=== PATIENT | female | born 1990 | race Caucasian/White ===

== ENCOUNTER 2019-04-17 10:14 | Outpatient (CLI) | payer BC, SELFPAY ==
--- NOTE | ~2019-04-17 | XR_ITS ---
EXAMINATION: XR chest 2V EXAM DATE: 04/17/2019 12:58 INDICATION: Chest pain on breathing. TECHNIQUE: Frontal and lateral projections of the chest obtained and reviewed. There is no prior joni dy for comparison. FINDINGS: The lungs are clear. There are no pleural effusions. The cardiomediastinal silhouette is within normal limits. There is no pneumothorax suspected. The bones and soft tissues are unremarkab le. IMPRESSION: Normal chest x-ray exam. Reviewed, dictated and finalized at location A. RING ASSISTANT IMPRESSION: Normal chest x-ray exam.
--- NOTE | 2019-04-17 10:38 | ECG_ITS ---
Measurements Intervals [place] Rate: 66 P: 15 AR: 134 QRS: 28 QRSD: 81 T: 6 QT: 410 QTc: 431 Interpretive Statements SINUS RHYTHM MINIMAL Q WAVES- LATERAL LEADS NONSPECIFIC T-WAVE ABNORMALITY- ANT/INF LEADS BORDERLINE ECG Electronically Signed On 04-17-2019 10:57:55 EXERCISE EQUIPMENT REPAIR TECHNICIAN by Frank Ashley D.O.
== END 2019-04-17 10:15 | disposition home or self-care (01) ==
PROVIDERS: PCP Internal Medicine; Visit Provider Nurse Practitioner
DX: R07.1 Chest pain on breathing (principal)
CPT/HCPCS: 71046; 93005

== ENCOUNTER 2019-04-28 12:45 | Outpatient (CLI) | payer BC, SELFPAY ==
--- NOTE | 2019-04-28 12:50 | ECG_ITS ---
Measurements Intervals [place] Rate: 68 P: 7 LA: 127 QRS: 17 QRSD: 85 T: 13 QT: 420 QTc: 448 Interpretive Statements SINUS RHYTHM MINIMAL Q WAVES- LATERAL LEADS BORDERLINE ECG Electronically Signed On 04-28-2019 13:06:40 LINING MARKER by Frank Ashley D.O.
== END 2019-04-28 12:46 | disposition home or self-care (01) ==
PROVIDERS: PCP Internal Medicine; Visit Provider Nurse Practitioner
DX: R07.1 Chest pain on breathing (principal)
CPT/HCPCS: 93005

== ENCOUNTER 2019-05-20 07:51 | Outpatient (CLI) | payer BC, SELFPAY ==
--- NOTE | ~2019-05-20 | NM_ITS ---
HEPATOBILIARY SCAN Procedure: Hepatobiliary scan performed following IV administration 4.8 mCi Tc 99m Choletec. At 60 m inutes 1.6 mcg CCK administered IV for evaluation of gallbladder ejection fraction. Indication:Bladder disease Comparison: HIDA scan dated 07/12/2015 Findings: There is normal radiotracer uptake in the liver parenchyma with prompt excretion into the b iliary tract. Gallbladder visualized at 30 minutes. Small bowel visualized at 25 minutes. Normal g allbladder ejection fraction measures 52% (normal 10-90%, but most patients with gallbladder dysfunct ion have GBEF of less than 35%) Impression: 1: Normal hepatobiliary scan. Reviewed, dictated and finalized at location A. Impression: 1: Normal hepatobiliary scan.
== END 2019-05-20 07:52 | disposition home or self-care (01) ==
LOC: ANHIMG 07:57
PROVIDERS: PCP Internal Medicine; Visit Provider Internal Medicine
DX: K82.9 Disease of gallbladder, unspecified (principal)
CPT/HCPCS: 78227; A9537; J2805

== ENCOUNTER → 2020-11-18 15:10 | Outpatient (CLI) | payer OTHER, SELFPAY ==
--- NOTE | ~2020-11-18 | US_ITS ---
EXAMINATION: US OB transvaginal DATE: 11/18/2020 15:54 INDICATION: Gestational dating TECHNIQUE: Real-time transabdominal and transvaginal obstetric ultrasound. FINDINGS: No prior studies for comparison. The uterus measures 6.6 x 4.6 x 5.8 cm. There is an intrauterine gestational sac, with pole [place] ntified. The crown rump length measures 0.43 cm, which correlates with a estimated gestational age o f 5 weeks 6 days. heart tones are identified measuring 120 BPM. There is a subchorionic hemor rhage measuring 1.3 x 1.1 x 0.6 cm. Right ovary is not visualized. Left ovary is normal. Small amount of free fluid in the pelvis. IMPRESSION: 1. SL IUP with an EGA of 5 weeks, 6 days (EDC by current ultrasound of 07/13/2021). 2: Small subchorionic hemorrhage. Reviewed, dictated and finalized at location A. IMPRESSION: 1. SL IUP with an EGA of 5 weeks, 6 days (EDC by current ultrasound of 2). 2: Small subchorionic hemorrhage.
== END ==
PROVIDERS: Visit Provider Obstetrics & Gynecology Gynecology
DX: O26.841 Uterine size-date discrepancy, first trimester (principal); Z3A.01 Less than 8 weeks gestation of pregnancy
CPT/HCPCS: 76817

== ENCOUNTER → 2020-12-05 16:31 | Outpatient (CLI) | payer OTHER, SELFPAY ==
--- NOTE | ~2020-12-05 | US_ITS ---
US OB <= 14 weeks fetus DATE: 12/05/2020 16:53 INDICATION: Subchorionic hematoma follow-up TECHNIQUE: Real-time imaging and Doppler analysis COMPARISON: 11/18/2020 obstetrical ultrasound examination FINDINGS: Uterus measures 9 cm height, 4.3 cm AP and 6.6 cm transverse dimension. A normally shaped i ntrauterine gestational sac is identified. pole and yolk sac are identified. heart rate 1 67 bpm. No subchorionic hematoma is identified. [place]-rump length measures 1.97 cm consistent with estimated gestational age of 8 weeks 4 days +/- 5 days and FRANK of 07/13/2021 IMPRESSION: No evidence of subchorionic hematoma Estimated gestational age of 8 weeks 4 days +/- 5 days; FRANK: 07/13/2021 Reviewed, dictated and finalized at Location A. Reviewed, dictated and finalized at location B.
== END ==
PROVIDERS: Visit Provider Obstetrics & Gynecology
DX: O36.8910 Maternal care for other specified fetal problems, first trimester, not applicable or unspecified (principal); Z3A.08 8 weeks gestation of pregnancy
CPT/HCPCS: 76801

== ENCOUNTER 2021-01-12 18:03 | Emergency (ER) | payer OTHER, SELFPAY ==
[2021-01-12 18:07] VITALS: BP 128/88; PULSE 94; RESP 14; TEMP 36.6; O2SAT 100
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
== END 2021-01-12 20:27 | disposition home or self-care (01) ==
PROVIDERS: Emergency Provider General Practice; PCP Internal Medicine
DX: O9A.212 Injury, poisoning and certain other consequences of external causes complicating pregnancy, second trimester (principal); S13.4XXA Sprain of ligaments of cervical spine, initial encounter; O99.612 Diseases of the digestive system complicating pregnancy, second trimester; K21.9 Gastro-esophageal reflux disease without esophagitis; V49.40XA Driver injured in collision with unspecified motor vehicles in traffic accident, initial encounter; Z3A.14 14 weeks gestation of pregnancy
CPT/HCPCS: 99282

== ENCOUNTER 2021-04-24 14:40 | Outpatient (CLI) | payer BC, SELFPAY ==
[2021-04-24 14:56] VITALS: BP 127/85; PULSE 92; RESP 16
[2021-04-24 15:00] VITALS: BP 118/77; PULSE 94; TEMP 36.7
[2021-04-24 15:15] VITALS: BP 109/64; PULSE 91
--- NOTE | 2021-04-24 15:19 | PC.NURSE ---
Updated Dr. Dudley with patient complaint of hypotension at work. Patient states she had a period where she felt dizzy that has since resolved and BP has since normalized. BP on assessment was WNL. FHT reactive. no contractions noted via TOCO monitor. Patient reports active movement. Patient may be sent home, patient will follow-up with Dr. George.
[2021-04-24 15:22] VITALS: BP 127/85; PULSE 92
== END 2021-04-24 15:25 | disposition home or self-care (01) ==
LOC: ANHOBOP 14:51
PROVIDERS: PCP Internal Medicine; Visit Provider Student in an Organized Health Care Education/Training Program
DX: O26.50 Maternal hypotension syndrome, unspecified trimester (principal); Z3A.00 Weeks of gestation of pregnancy not specified
CPT/HCPCS: 59025

== ENCOUNTER 2021-06-22 15:02 | Outpatient (CLI) | payer BC, SELFPAY ==
[2021-06-22 15:38] LABS: Basophils Absolute Auto 0.1 K/mm3 (0.0-0.1); Basophils Percent Auto 0.4 % (0.2-1.2); Eosinophils Absolute Auto 0.3 K/mm3 (0-0.3); Eosinophils Percent Auto 1.9 % (0-4.4); Hematocrit 34.3 % (37.0-47.0); Hemoglobin 11.5 g/dL (12.0-15.0); Immature Granulocyte Absolute 0.15 K/mm3 (0.00-0.031); Immature Granulocyte Percent A 0.9 % (0-0.5); Lymphocytes Absolute Auto 2.72 K/mm3 (0.9-3.2); Lymphocytes Percent Auto 16.9 % (18.3-44.2); Mean Corpuscular HGB Conc 33.5 g/dl (32-36); Mean Corpuscular Hemoglobin 31.9 pg (26-34); Mean Corpuscular Volume 95.3 fl (80-100); Mean Platelet Volume 10.5 fl (7.4-10.4); Monocytes Percent Auto 6.3 % (2.6-8.5); Neutrophils Absolute Auto 11.9 K/mm3 (1.3-6.7); Neutrophils Percent Auto 73.6 % (45.5-73.1); Platelet Count Result 255 k/mm3 (150-375); Red Cell Distribution Width 13.2 % (11.5-14.5); White Blood Count 16.1 K/mm3 (4.5-10.0)
[2021-06-22 15:45] VITALS: BP 131/83; PULSE 89
[2021-06-22 15:51] LABS: Alanine Aminotransferase 15 U/L (4-35); Albumin Level 3.6 g/dL (3.5-5.1); Alkaline Phosphatase 165 U/L (38-126); Anion Gap 6 mmol/L (8-16); Aspartate Amino Transferase 23 U/L (14-36); Bilirubin,Total 0.2 mg/dL (0.2-1.3); Blood Urea Nitrogen 8 mg/dL (7-17); Calcium 8.9 mg/dL (8.4-10.2); Carbon Dioxide 16 mmol/L (22-30); Chloride 109 mmol/L (98-107); Estimated Glomerular Filt Rate > 60; Glucose 100 mg/dL (65-110); Sodium 131 mmol/L (137-145); Uric Acid 4.1 mg/dL (2.5-7.5)
[2021-06-22 15:56] LABS: Add Urine Microscopic? NO; Appearance Urine Clear (Clear); Bilirubin Urine Negative (Negative); Blood Urine Negative (Negative); Color Urine Straw (Yellow); Glucose Urine UA Negative (Negative); Ketones Urine Negative (Negative); Leukocyte Esterase Ur Negative LEU/UL (NEGATIVE); Nitrate Urine Negative (Negative); Protein Urine Negative (Negative); Specific Grav Ur 1.006 (1.001-1.035); Urobilinogen Urine Negative mg/dL (<2.0)
[2021-06-22 16:00] VITALS: BP 125/78; PULSE 88
[2021-06-22 16:15] VITALS: BP 130/82; PULSE 92
[2021-06-22 16:30] VITALS: BP 122/86; PULSE 81
--- NOTE | 2021-06-22 16:35 | PC.NURSE ---
Spoke to Dr. George, BP's and labs reviewed. Orders to discharge to home
[2021-06-22 18:27] LABS: Creatinine Urine 41.2 mg/dL; Total Protein Urine Random 13 mg/dL; Ur Ttl Prot Creatinine Ratio 0.32 mg/mg (0-0.20)
== END 2021-06-22 16:40 | disposition home or self-care (01) ==
LOC: ANHOBOP 15:14 → ANHLDR 15:17
PROVIDERS: PCP Internal Medicine; Visit Provider Student in an Organized Health Care Education/Training Program
DX: O13.9 Gestational [pregnancy-induced] hypertension without significant proteinuria, unspecified trimester (principal); Z3A.00 Weeks of gestation of pregnancy not specified
CPT/HCPCS: 36415; 59025; 80053; 81003; 82570; 84156; 84550; 85025; 87086; 99199

== ENCOUNTER 2021-06-26 15:41 | Observation (INO) | payer BC, SELFPAY ==
[2021-06-26 16:03] VITALS: BP 141/94; PULSE 87
[2021-06-26 16:16] VITALS: BP 130/85; PULSE 86
[2021-06-26 16:31] VITALS: BP 138/75; PULSE 86
--- NOTE | 2021-06-26 16:42 | OBADM ---
This patient, Patricia Dyson, admitted to the OB room OB Post 116 for observation. Patient/family oriented to hospital policies and general routines including ID bracelet, bed and alarms, visiting hours, pain management, procedures, bathroom and other care routines, personal items, smoking policy, room service/diet, and visiting hours. Patient/Family are encouraged to report perceived risks to care and to ask questions if they do not understand what they are told or what they should do.
[2021-06-26 16:46] VITALS: BP 132/85; PULSE 77
[2021-06-26 17:00] VITALS: TEMP 36.6
--- NOTE | 2021-07-20 12:07 | PM.OBTRLD ---
OB - Triage/Final Diagnosis Visit Information Comments/Additional reasons for admission: I have assessed the risk for this patient, Patricia Dyson, and determined that she would benefit from observation care. Final Diagnosis (1) False labor: Code(s): O47.9 - False labor, unspecified Status: Acute
== END 2021-06-26 17:15 | disposition home or self-care (01) ==
PROVIDERS: Admitting Provider Obstetrics & Gynecology; PCP Internal Medicine; Visit Provider Student in an Organized Health Care Education/Training Program
DX: O26.899 Other specified pregnancy related conditions, unspecified trimester (principal); R10.2 Pelvic and perineal pain; Z3A.00 Weeks of gestation of pregnancy not specified
CPT/HCPCS: G0378; G0379

== ENCOUNTER 2021-06-29 12:00 | Outpatient (CLI) | payer BC, SELFPAY ==
--- NOTE | 2021-06-29 12:47 | PC.NURSE ---
Dr. George informed of this pt's arrival with c/o wetness in underwear this am. Still waiting for ROM plus result, but BP's are 135/92, 134/96, and 135/89. Pt denies headache, visual disturbance, epigastric/RUQ pain. Pt has 1+ pitting in ankles and pre-tibial. DTR's are barely able to illicit; no clonus. Informed MD that pt has an appointment in her office at 2:45 today. Order received that if ROM plus is negative, to discharge pt to home so she can go to her appointment this afternoon and MD will talk with pt about inducing labor for preeclampsia.
[2021-06-29 13:04] VITALS: BP 124/81; PULSE 83
== END 2021-06-29 13:08 | disposition home or self-care (01) ==
LOC: ANHOBOP 13:02 → ANHLDR 13:02
PROVIDERS: PCP Internal Medicine; Visit Provider Student in an Organized Health Care Education/Training Program
DX: O42.90 Premature rupture of membranes, unspecified as to length of time between rupture and onset of labor, unspecified weeks of gestation (principal); Z3A.00 Weeks of gestation of pregnancy not specified
CPT/HCPCS: 59025; 84112; 99199

== ENCOUNTER 2021-06-29 18:56 | Inpatient (IN) | payer BC, SELFPAY ==
[2021-06-29] VITALS (7 sets, daily range): BP systolic 113–140; BP diastolic 66–93; PULSE 81–91; BMI 33.0
[2021-06-29] MEDS: DINOPROSTONE 10 MG VAG INSERT VAGINAL (19:47)
[2021-06-29 19:49] LABS: Basophils Absolute Auto 0.1 K/mm3 (0.0-0.1); Basophils Percent Auto 0.4 % (0.2-1.2); Eosinophils Absolute Auto 0.3 K/mm3 (0-0.3); Eosinophils Percent Auto 1.8 % (0-4.4); Hematocrit 33.2 % (37.0-47.0); Hemoglobin 11.1 g/dL (12.0-15.0); Immature Granulocyte Absolute 0.12 K/mm3 (0.00-0.031); Immature Granulocyte Percent A 0.9 % (0-0.5); Lymphocytes Absolute Auto 2.94 K/mm3 (0.9-3.2); Lymphocytes Percent Auto 21.1 % (18.3-44.2); Mean Corpuscular HGB Conc 33.4 g/dl (32-36); Mean Corpuscular Hemoglobin 31.9 pg (26-34); Mean Corpuscular Volume 95.4 fl (80-100); Mean Platelet Volume 10.9 fl (7.4-10.4); Monocytes Absolute Auto 0.9 K/mm3 (0.1-0.6); Monocytes Percent Auto 6.7 % (2.6-8.5); Neutrophils Absolute Auto 9.7 K/mm3 (1.3-6.7); Neutrophils Percent Auto 69.1 % (45.5-73.1); Platelet Count Result 251 k/mm3 (150-375); Red Blood Count 3.48 M/mm3 (4.2-5.4); Red Cell Distribution Width 13.6 % (11.5-14.5); White Blood Count 13.9 K/mm3 (4.5-10.0)
[2021-06-29 20:00] LABS: Albumin Level 3.4 g/dL (3.5-5.1); Alkaline Phosphatase 171 U/L (38-126); Anion Gap 8 mmol/L (8-16); Aspartate Amino Transferase 28 U/L (14-36); Bilirubin,Total 0.1 mg/dL (0.2-1.3); Blood Urea Nitrogen 9 mg/dL (7-17); Calcium 8.2 mg/dL (8.4-10.2); Carbon Dioxide 17 mmol/L (22-30); Chloride 108 mmol/L (98-107); Estimated CRCL calculation 151 ml/min; Estimated Glomerular Filt Rate > 60; Glucose 143 mg/dL (65-110); Potassium 3.5 mmol/L (3.4-5.0); Sodium 133 mmol/L (137-145)
[2021-06-29 20:05] LABS: Uric Acid 5.1 mg/dL (2.5-7.5)
[2021-06-29 21:32] LABS: Alanine Aminotransferase 21 U/L (4-35)
[2021-06-30] VITALS (40 sets, daily range): BP systolic 113–149; BP diastolic 71–103; PULSE 71–124; RESP 16–18; TEMP 35.9–36.9; O2SAT 84–100
[2021-06-30] MEDS: ACETAMINOPHEN 500 MG TABLET 1000 MG (02:11)
[2021-06-30 06:33] LABS: Rapid Plasma Reagin Non-Reactive (NonReactive)
[2021-06-30] MEDS: LACTATED RINGERS 1,000 ML 125 ML IV CONT ×2 (07:59→08:33)
[2021-06-30] MEDS: OXYTOCIN 30 UNITS/NS 500 ML 30 UNITS/500 ML BAG IV CONT (07:59)
[2021-06-30] MEDS: fentaNYL CITRATE INJ (*CRX) 100 MCG/2 ML VIAL 50 MCG IV PUSH (08:04)
[2021-06-30] MEDS: OXYTOCIN 30 UNITS/NS 500 ML 30 UNITS/500 ML BAG 125 UNITS IV CONT (10:16)
--- NOTE | 2021-06-30 10:32 | P.PCNOB_ITS ---
OB - Delivery Note Procedure Delivery date: 06/30/21 Procedure: The patient is a 30-year-old now who presented to labor and delivery on the evening of 06/29/2021 at 38 weeks 3 days gestation for induction of labor. Patient was diagnosed with preeclampsia without severe features ea rlier during the day and decision was made to proceed with delivery. Initial cervical exam was approximately 1 cm dilated. Induction of labor was started with Cervidil. Cervidil was placed and remained in place for 12 hours. On the morning of 06/30/2021, Cervidil was removed and artificial rupture membranes was performed at 7:26 a.m. Clear amniotic fluid was noted. Cervical exam was 3 cm dilated. Pitocin was started for labor augmentation and patient began making quick cervical change. Patient became uncomfortable and requested an epidural for pain management which was placed without difficulty. Patient progressed quickly and was noted to be fully dilated at 9:13 a.m. Patient was encouraged to push and found to be pushing well. Patient was prepped and draped for delivery. At 9:40 a.m., patient delivered head atraumatically and without difficulty and HAN presentation. A nuchal cord x2 was noted, however, unable to be reduced. Patient was encouraged to push again and 's neck, shoulders, and rest of body delivered without difficulty. Nuchal cord was reduced. Infant was crying spontaneously. Nose and mouth were suctioned with bulb suction and infant was placed on maternal abdomen where care was assumed by awaiting nursing staff. Delayed cord clamping was performed for approximately 60 seconds. The cord was clamped and cut. A segment of cord was collected for cord gases. Cord blood was collected. The placenta was delivered spontaneously and intact. On inspection, a few abrasions were noted along the labia and perineum, however, these were hemostatic and did not require repair. A small right periurethral laceration was noted and was made hemostatic with 3-0 Vicryl in usual fashion. Excellent hemostasis was noted. Estimated blood loss for entire delivery was 150 cc. The infant was a live-born female , Apgars 8 and 9, weighing 6 lb 12 oz. Both mother and baby doing well at end of delivery. Events: Preeclampsia w/o severe features Induction method: Per Cervidil Protocol Delivery augmentation: Rupture of Membranes and Pitocin Delivery monitor: External FHT and External Uterine Route of delivery: Laceration Description: Periurethral (right) and Other (few superficial abrasions) Delivery repair: vicryl (3-0 ) Specimen: Yes (placenta and cord, cord blood and cord gases) Quantitative Blood Loss (ml): 150 Anesthesia type: Epidural Disposition: Floor Complications: No immediate complications [place] Baby Date of : 06/30/21 Time of : 09:40 Weeks of gestation at delivery: 38 (38.4) Infant gender: Female Weight (pounds): 6 Weight (ounces): 12 presentation: vertex position: Right Occiput Anterior Placenta delivery description: Spontaneous Cord Vessel Description: 3 Vessels, Nuchal Cord (x2) and Delayed Cord Clamping score one minute: 8 score five minutes: 9 AMG Delivery Billing Delivery Delivery: Delivery Charge
--- NOTE | 2021-06-30 10:32 | PM.IMHP ---
H&P: HPI History of Present Illness Date/Time: 06/30/21 10:32 Patient is a LMP 10/03/20 currently 38w3d gestation with FRANK 07/10/21. She is dated by LMP c/w US on 11/18/20 at 5w gestation. Patient presented to L&D for evaluation of leakage of fluid. She was not ruptured, however, was noted to have elevated BP measurements. This was the second documentation of elevated BP during this . Previous P/C ratio was elevated. Therefore, patient met criteria for preeclampsia without severe features. She was otherwise asymptomatic. Denies any headache, chest pain, SOB, N/V, visual disturbances, or RUQ tenderness. Report occasional contractions. Denies any further leakage of fluid or vaginal bleeding. Reports good movement. Chief Complaint: Intrauterine gestation at 38w3d Preeclampsia without severe features Review of Systems Review of Systems: All systems reviewed & are unremarkable except as noted in HPI and below Constitutional: Constitutional: Reports as per HPI, Reports no additional constitutional complaints, Denies chills, Denies fever(s), Denies headache(s) and Denies night sweats Eyes: Eyes: Reports as per HPI and Reports no additional eye complaints ENT: Reports system reviewed and no additional complaints, except as documented, Reports as per HPI, Reports Normal hearing present and Denies headache(s) Cardiovascular: Cardiovascular: Reports as per HPI, Reports no additional cardiovascular complaints, Denies chest pain and Denies dyspnea Respiratory: Respiratory: Reports as per HPI, Reports no additional respiratory complaints, Denies cough and Denies dyspnea Gastrointestinal: Gastrointestinal: Reports as per HPI, Reports no additional gastrointestinal complaints, Denies abdominal pain, Denies change in bowel habits, Denies change in stool character, Denies nausea and Denies vomiting Genitourinary: Genitourinary: Reports no additional female genitourinary complaints, Reports as per HPI, Denies abnormal vaginal bleeding, Denies genital lesions, Denies hot flashes, Denies dyspareunia, Denies pelvic pain, Denies sexual dysfunction, Denies urinary incontinence, Denies vaginal discharge, Denies vaginal dryness and Denies vaginal odor Musculoskeletal: Musculoskeletal: Reports no additional musculoskeletal complaints and Reports as per HPI Integumentary/Breasts: Skin/Breast: Reports system reviewed and no additional complaints, except as docu, Reports as per HPI, Denies breast pain and Denies nipple discharge Neurologic: Reports system reviewed and no additional complaints, except as documented, Reports as per HPI, Reports Normal hearing present and Denies headache(s) Psychiatric: Psychiatric: Reports no additional psychiatric complaints, Reports as per HPI, Denies anxiety and Denies depression Endocrine: Endocrine: Reports no additional endocrine complaints and Reports as per HPI Hematologic/Lymphatic: Hematologic/Lymphatic: Reports no additional hematologic/lymphatic complaints and Reports as per HPI Allergic/Immunologic: Allergic/Immunologic: Reports no additional allergic/immunologic complaints and Reports as per HPI PMFSH Past Medical History Medical History Allergies Constipation GERD (gastroesophageal reflux disease) Monocular visual disturbance Surgical History Surgical History H/O eye surgery 1998 & 2008 H/O oral surgery x2 2005 H/O tympanostomy 1990 Family History Family History Mother Heart disease HLD (hyperlipidemia) Graves disease Diabetes mellitus Family history of thyroid problem Father HLD (hyperlipidemia) Hypertension Sibling Goiter Other Family history of heart disease in male family member before age 55 Social History Social History Smoking status: Never smoker Second hand t
--- NOTE | 2021-06-30 12:49 | OBPPTRN ---
1213 Patient transferred to post room #280 via W/C. Support person present. Oriented to unit, room, information board, rooming in, admission packet and security measures. Patient verbalizes understanding.
[2021-07-01] MEDS: ACETAMINOPHEN 325 MG TABLET 650 MG PO ×2 (01:22→09:46)
[2021-07-01 04:00] VITALS: BP 124/80; PULSE 78; RESP 16; TEMP 36.7
[2021-07-01 04:39] LABS: Hematocrit 31.8 % (37.0-47.0); Hemoglobin 10.3 g/dL (12.0-15.0)
--- NOTE | 2021-07-01 08:14 | PM.OBPNVD ---
OB - PN: Subj Subjective Date/time seen: 07/01/21 08:14 Patient doing well. Reports mild-moderate cramping, well controlled with medication. Minimal lochia. Ambulating without difficulty. Voiding well. Denies any headache, chest pain, SOB, N/V, visual disturbances, or RUQ tenderness. OB - PN: Obj Data Labs CBC & Chem 7: 07/01/21 04:04 06/29/21 19:25 Labs: Laboratory Results - last 24 hr 07/01/21 04:04 Hgb 10.3 L Hct 31.8 L OB - PN A/P Assessment and Plan (1) Normal spontaneous vaginal delivery: Code(s): O80 - Encounter for full-term uncomplicated delivery Status: Acute Assessment and Plan: PPD#1 doing well continue routine care BP within normal limits pt asymptomatic requesting dc home today will observe throughout afternoon and consider dc later today emergency precautions reviewed pending dc, f/u in office in 1 week for BP check Time Spent With Patient Time: Total time spent is greater than 50% in coordination of care (as documented) at patient's floor/unit and/or counseling patient: Exam Const: General: cooperative, healthy appearing, comfortable and no acute distress GI: Inspection: non-distended GI Palp: No Soft to palpation and No Tenderness to palpation present (GI) Other: fundus firm below umbilicus Extrem: Right lower extremity: no edema Left lower extremity: no edema Other: no calf tenderness
--- NOTE | 2021-07-01 08:18 | PM.OBDSVD ---
DS: Admitting Diagnosis Discharge Date 07/01/21 Admitting Diagnosis Intrauterine at 38w3d Preeclampsia OB - DS: Summary OB Procedures : None OB Procedures Intrapartum: Spontaneous Vag Delivery OB Procedures: : None Time Spent with Patient Time attestation: Total time spent providing and/or coordinating discharge services: DS: Data Data Completed and Pending Pending studies at discharge: Pending at discharge 06/30/21 11:27 Surgical [PTH] Routine Labs on day of discharge: Labs from last 24 hours 07/01/21 04:04 Hgb 10.3 L Hct 31.8 L Discharge Plan Discharge Attending physician on discharge: Zaina George Discharging Clinician: Zaina George Anticipated Discharge Date/Time: 07/01/21 15:00 Patient Disposition: Home, Self-Care Activity: as tolerated and pelvic rest Diet: regular Discharge Instructions: Call office ([phone]) to schedule a BP check in 1 week and a visit in 4-6 weeks. You may take Ibuprofen 600mg every 6 hours as needed for pain. Pain medication may make you constipated. It may be helpful to take an eawj-anf-bipdssv stool softener, such as Colace and/or Senokot, along with the pain medication to help lessen constipation. Call office or go to ED for pain not controlled with medication, headache, chest pain, shortness of breath, fever, chills, persistent nausea or vomiting, severe abdominal pain, heavy vaginal bleeding >2 pads/hour, foul vaginal discharge or odor, or problems with your breasts. Patient Instructions: Antibiotic Form Stand Alone Forms: General Discharge Information Follow-up/Referrals: Zaina George MD [Physician] - Discharge Medications: Continued vit-iron fum-folic ac 28 mg iron- 800 mcg tablet 1 tablet PO DAILY RF: 0 Discontinued Colace Clear 50 mg capsule 50 mg PO TID RF: 0 calcium phosphate-vitamin D3 [Citracal-D3 Gummies] 250 mg calcium- 500 unit tablet,chewable 1 tablet PO DAILY RF: 0 cholecalciferol (vitamin D3) 1,250 mcg (50,000 unit) capsule 50,000 unit PO 2XW RF: 0 aspirin 81 mg tablet,delayed release (DR/EC) 81 mg PO DAILY RF: 0 diphenhydramine HCl [Benadryl] 25 mg capsule 25 mg PO QHS PRN (Reason: Congestion) RF: 0 pseudoephedrine HCl [Sudafed 12 Hour] 120 mg tablet extended release 120 mg PO QAM PRN (Reason: Congestion) RF: 0 Date of admission: 06/29/21 18:56 Primary Care Provider: Juma Marin Admitting Provider: Zaina George Attending physician on admission: Zaina George Condition: Stable
[2021-07-01 08:25] VITALS: BP 123/84; PULSE 71; RESP 18; TEMP 36.6; O2SAT 99
[2021-07-01] MEDS: MULTIVIT/MIN/PREN/FOL AC/IRON TABLET 1 TAB PO (09:48)
[2021-07-01] MEDS: DOCUSATE SODIUM 100 MG CAPSULE PO (09:48)
--- NOTE | 2021-07-01 10:57 | OBPPTRN ---
1002 Patient transferred to post room #285 via W/C. Support person present. Oriented to unit, room, information board, rooming in, admission packet and security measures. Patient verbalizes understanding.
[2021-07-01 13:10] VITALS: BP 118/79; PULSE 81; RESP 18; TEMP 36.8; O2SAT 100
[2021-07-03 09:35] VITALS: BP 138/87; PULSE 70; RESP 20; TEMP 36.8; O2SAT 100
== END 2021-07-01 17:30 | disposition home or self-care (01) | DRG 807 ==
LOC: ANHLDR 18:58 → ANHOB2 06-30 12:58
PROVIDERS: Admitting Provider Student in an Organized Health Care Education/Training Program; PCP Internal Medicine; Visit Provider Student in an Organized Health Care Education/Training Program
DX: O14.94 Unspecified pre-eclampsia, complicating childbirth (principal); Z37.0 Single live birth; Z3A.38 38 weeks gestation of pregnancy; O71.82 Other specified trauma to perineum and vulva; O69.81X0 Labor and delivery complicated by cord around neck, without compression, not applicable or unspecified; O99.62 Diseases of the digestive system complicating childbirth; K21.9 Gastro-esophageal reflux disease without esophagitis
CPT/HCPCS: 36415; 80053; 84550; 85014; 85018; 85025; 86592; 86850; 86900; 86901; 88307; A9270; J2590; J2795; J3010; J7120